=== PATIENT | male | born 1950 | race Caucasian/White ===

== ENCOUNTER → 2017-06-23 | Outpatient (CLI) | payer MEDICARE | END | disposition home or self-care (01) | LOC: PCVCCLINIC 13:34 | PROVIDERS: ATTEND Internal Medicine Cardiovascular Disease | DX: I25.10 Atherosclerotic heart disease of native coronary artery without angina pectoris (principal); I10 Essential (primary) hypertension; E78.2 Mixed hyperlipidemia; F17.200 Nicotine dependence, unspecified, uncomplicated; I44.0 Atrioventricular block, first degree; I48.91 Unspecified atrial fibrillation; Z95.1 Presence of aortocoronary bypass graft; Z90.49 Acquired absence of other specified parts of digestive tract; Z95.5 Presence of coronary angioplasty implant and graft; Z79.82 Long term (current) use of aspirin | CPT/HCPCS: 80061; 93005; G0463 ==

== ENCOUNTER → 2018-03-22 | Outpatient (CLI) | payer MEDICARE | END | disposition home or self-care (01) | LOC: PCVCIMAG 15:07 | DX: I25.10 Atherosclerotic heart disease of native coronary artery without angina pectoris (principal); E78.5 Hyperlipidemia, unspecified; I10 Essential (primary) hypertension; Z95.1 Presence of aortocoronary bypass graft; Z72.0 Tobacco use | CPT/HCPCS: 93325; 93351 ==

== ENCOUNTER → 2019-01-18 | Outpatient (CLI) | payer MEDICARE | END | disposition home or self-care (01) | LOC: PCVCCLINIC 11:25 | PROVIDERS: ATTEND Internal Medicine Cardiovascular Disease | DX: I25.10 Atherosclerotic heart disease of native coronary artery without angina pectoris (principal); E78.00 Pure hypercholesterolemia, unspecified; I48.91 Unspecified atrial fibrillation; E78.5 Hyperlipidemia, unspecified; I10 Essential (primary) hypertension; F17.210 Nicotine dependence, cigarettes, uncomplicated; Z90.49 Acquired absence of other specified parts of digestive tract; Z95.1 Presence of aortocoronary bypass graft; Z79.82 Long term (current) use of aspirin | CPT/HCPCS: 36415; 80061; 93005; G0463 ==

== ENCOUNTER → 2019-09-19 | Outpatient (CLI) | payer MEDICARE ==
--- NOTE | 2019-09-19 14:46 | PCVCIMAG ---
APPROVED REPORT Study performed: 09/19/2019 10:51:53 Exam: Stress Echocardiogram Indication: CAD s/p CABG, tobacco use, hlp Patient Location: Echo lab Stress Nurse: Cathie Archer RN Status: routine Ht: 5 ft 7 in HR: 81 bpm BP: 124/90 mmHg Rhythm: NSR Procedure The patient underwent an Exercise Stress Test using the Justino Protocol. Blood pressure, heart rate, and EKG were monitored. An Echocardiogram was performed by experimental technician in four stages in quad fashion. At peak stress, four selected images were obtained and placed side by side with resting images for comparison. Stress Test Details Stress Test: Exercise stress testing was performed using a Justino protocol. HR Resting HR: 81 bpmMax Heart Rate (APMHR): 153 bpm Max HR Achieved: 141 bpmTarget HR (85% APMHR): 130 bpm % of APMHR: 92 Recovery HR: 90 bpm HR response to stress: Normal HR response to stress BP Resting BP: 124/90 mmHg Max BP: 150/80 mmHg Recovery BP: 116/76 mmHg BP response to stress: Normal blood pressure response to stress. ECG Resting ECG: Sinus Rhythm Stress ECG: Sinus Rhythm ST Change: Normal Arrhythmia: isolated PVCs Recovery ECG: Sinus Rhythm Recovery ST Change: Normal Recovery Arrhythmia: PVC Clinical Reason for Termination: Completed protocol, Dyspnea Stress Symptoms: Dyspnea Exercise duration: 8 min 30 sec Highest Stage Achieved: Stage 3: 3.4 mph at 14% grade. Exercise capacity: 10.4 METs Overall Exercise Capacity for Age: Normal Scale: Active Angina Score: None Pre-Stress Echo The resting Echocardiogram showed normal left ventricular contractility with an estimated Ejection Fraction of about 50-55%. The resting echocardiogram demonstrated normal wall motion in all wall segments. Post-Stress Echo The stress Echocardiogram showed normal left ventricular contractility with an estimated Ejection Fraction of about 60-65%. Compared to rest, there were no stress-induced wall motion abnormalities. Clinical No clinical or ECG evidence for ischemia. Conclusion Clinical Response: Non-ischemic Exercise Capacity: Average Stress ECG Response: Non-ischemic Stress Echo Images: Non-ischemic The left ventricle is normal in size and wall thickness in both the rest and stress images. Trace mitral and pulmonic regurgitation. Normal aortic valve without stenosis or regurgitation. Mild tricuspid regurgitation with PAP of 29 mmHg. Other Information Study Quality: Adequate <Conclusion> The left ventricle is normal in size and wall thickness in both the rest and stress images. Trace mitral and pulmonic regurgitation. Normal aortic valve without stenosis or regurgitation. Mild tricuspid regurgitation with PAP of 29 mmHg.
== END | disposition home or self-care (01) ==
LOC: PCVCIMAG 11:10
PROVIDERS: ATTEND Internal Medicine Cardiovascular Disease
DX: I07.1 Rheumatic tricuspid insufficiency (principal); I25.10 Atherosclerotic heart disease of native coronary artery without angina pectoris; E78.2 Mixed hyperlipidemia; Z72.0 Tobacco use; Z95.1 Presence of aortocoronary bypass graft
CPT/HCPCS: 93325; 93351